=== PATIENT | female | born 1965 | race Caucasian/White ===

== ENCOUNTER → 2017-11-09 | Day surgery (SDC) | payer BC ==
[2017-11-08 08:23] VITALS: BMI 33.2
[~2017-11-09] MED LIST: LACTATED RINGERS 1,000 ML IV SCH; LIDOCAINE 1% 20 ML VIAL (10MG/ML) FOR IV START INTRADERMA PRN; PROPOFOL 10 MG/ML 20 ML VIAL IV ONE
[2017-11-09 12:15] VITALS: TEMP 96.8
--- NOTE | 2017-11-09 13:17 | P.PCN ---
Date of Procedure: 11/09/17 Procedure(s) Performed: BRIEF HISTORY: Patient is a 52-year-old, pleasant, white female, scheduled for an upper endoscopy as a part of evaluation of intermittent dysphagia to solids for the last 6 months duration. She has symptoms with solids about once or twice a week. She denies any heartburn.. PROCEDURE PERFORMED: Esophagogastroduodenoscopy with dilation. PREOPERATIVE DIAGNOSIS: Intermittent dysphagia to solids. IV sedation per anesthesia. PROCEDURE: After informed consent was obtained, the patient was brought into the endoscopy unit. IV sedation was administered by Anesthesia under continuous monitoring. Initially the Olympus GIF-140 video endoscope was inserted into the mouth. Esophagus intubated without any difficulty. It was gradually advanced into the stomach and duodenum and carefully examined. The bulb and the second part of the duodenum appeared normal. The scope at this time was withdrawn to the stomach, adequately insufflated with air, and upon careful examination, mucosa of the antrum, body, cardia and the fundus appeared normal. The scope was then withdrawn into the esophagus. Small hiatal hernia noted. The GE junction was located at 32 cm from the incisors. There was a distal esophageal stricture identified and this was dilated using the 12-15 mm TTS balloon for total of 90 seconds. There were 2 superficial erosions noted at the GE junction consistent with LA grade B reflux esophagitis. Rest of esophagus appeared normal and the patient tolerated the procedure well. IMPRESSION: 1. Distal esophageal stricture status post balloon dilation using 12-15 mm TTS balloon as described above 2.[ Small hiatal hernia 3. LA grade B reflux esophagitis. RECOMMENDATIONS: The findings of this examination were discussed with the patient as well as her family. She was advised to be a clear liquid diet for lunch today. She'll be started on Prilosec 20 mg daily. She was advised to follow up in office in 3 months.
[2017-11-09 13:21] VITALS: RESP 16
[2017-11-09 13:39] VITALS: BP 129/69; PULSE 74
== END ==
LOC: ORWHC2ENDO 11:37
PROVIDERS: ATTEND Internal Medicine Gastroenterology
DX: K22.2 Esophageal obstruction (principal); K44.9 Diaphragmatic hernia without obstruction or gangrene; K21.0 Gastro-esophageal reflux disease with esophagitis; Z79.1 Long term (current) use of non-steroidal anti-inflammatories (NSAID)
CPT/HCPCS: 43249; J2704; C1726

== ENCOUNTER → 2017-11-09 | Outpatient (CLI) | payer BC ==
--- NOTE | 2017-11-09 13:11 | WWHP ---
[facility] - HISTORY AND PHYSICAL DATE OF SERVICE: 11/09/2017 CHIEF COMPLAINT: The patient is here for her routine gynecologic exam and mammogram. HPI: This is a 52-year-old G2, P2, with an LMP of 2003. The patient states it has been more than 5 years since her last pelvic exam. She is without gynecologic complaints and denies any postmenopausal bleeding. 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 She denies any other medical problems. She does not have a history of hypertension. MEDICATIONS: 1. Vitamin D3, 2000 units daily. 2. Fish oil supplement 1200 mg daily. 3. Women's multivitamin 1 daily. 4. Naproxen sodium 500 mg p.r.n. ALLERGIES: No known drug allergies. PAST SURGICAL HISTORY: Cleft palate repair as a child, jaw surgery in the past, laparoscopic cholecystectomy 2015. PAST OB HISTORY: Two vaginal deliveries. PAST THROAT CUTTER HISTORY: She has been menopausal since 2013 and has no history of STDs. SOCIAL HISTORY: She quit smoking in her 30s. She denies alcohol and drug use. She is and is a homemaker. FAMILY HISTORY: Father had throat cancer. She denies family history of cancer of the breast, uterus, ovaries or colon. REVIEW OF SYSTEMS: Weight has been stable. She denies respiratory or cardiac problems. GI: She has had some difficulty swallowing and is seeing Dr. Mariscal and she is scheduled for an upper GI. PHYSICAL EXAM: Blood pressure 178/78, height 5 feet 1 inch, weight 177 pounds, BMI 33. temperature 96.9, pulse 71. This is a well-developed, well-nourished, white female, who is alert and oriented x3, in no acute distress. HEENT is within normal limits. NECK: Supple without mass or thyromegaly. CHEST AND LUNGS: Clear to auscultation. HEART: Regular rate and rhythm. Breasts are without mass or discharge. Axillary exam is negative for adenopathy. BACK: Negative for CVA tenderness. ABDOMEN: Soft, nontender, without palpable masses. PELVIC EXAM: External genitalia reveals mild atrophy without lesions. Cervix and vagina reveal mild atrophy. The cervix is slightly irregular in shape with an elongated anterior lip, but this appears benign. There are no cervical lesions. There is no unusual discharge. There is no evidence of prolapse. Bimanual exam, the uterus is mid position, nongravid size and nontender. There is an irregular firmness in the left adnexal region which seems to be adjacent to the uterus. There are no right adnexal masses or tenderness. There is no left adnexal tenderness. Rectovaginal exam was refused by the patient. EXTREMITIES: Nontender. IMPRESSION: A 52-year-old menopausal female with left adnexal pelvic mass. Differential diagnosis will include uterine fibroid, left ovarian mass, which would include benign or malignant change or benign uterine enlargement. PLAN: 1. Pap smear was performed. 2. Self breast examination was discussed. 3. Screening mammogram will be done today. 4. Bone density screening will be done today as was recommended by her primary care physician according to the patient. 5. Her elevated blood pressure was discussed. She will follow up with Dr. Reese regarding blood pressure issues. 6. The patient will be scheduled for a pelvic ultrasound to further evaluate the possible adnexal mass. 7. I have recommended screening colonoscopy. I have recommended that she talk to Dr. Mariscal who will be doing her upper GI about this. 8. She will return in 1 year and p.r.n. MMODL / IJN: [id number] /
--- NOTE | 2017-11-10 11:44 | MM ---
Reason for exam: screening (asymptomatic). Last mammogram was performed 2 years and 2 months ago. History: Patient is postmenopausal. Physical Findings: A clinical breast exam by your physician is recommended on an annual basis and results should be correlated with mammographic findings. MG Screening Mammo w CAD Bilateral CC and MLO view(s) were taken. Prior study comparison: September 02, 2015, mammogram, performed at [facility]. September 25, 2013, mammogram, performed at [facility]. The breast tissue is heterogeneously dense. This may lower the sensitivity of mammography. Focal asymmetry upper outer left breast 6.6cm from nipple. This finding is changed when compared with previous exams. ASSESSMENT: Incomplete: need additional imaging evaluation, BI-RAD 0 RECOMMENDATION: Special view mammogram of the left breast. If lesion persists on supplemental views, image directed ultrasound is recommended. [facility] will attempt to contact patient to return for supplemental views and ultrasound if indicated.
--- NOTE | 2017-11-10 22:13 | BD ---
EXAMINATION TYPE: MG DEXA axial skeleton. DATE OF EXAM: 11/09/2017 COMPARISON: NONE CLINICAL HISTORY: Height: 60.5 IN Weight: 167 LBS FRAX RISK QUESTIONS: Alcohol (3 or more units per day): NO Family History (Parent hip fracture): NO Glucocorticoids (More than 3mos): NO (Ex: prednisone, prednisolone, methylprednisolone, dexamethasone, and hydrocortisone). History of Fracture in Adulthood: YES LEFT FOREARM AGE 48 Secondary Osteoporosis: 1. Type 1 Diabetes: NO 2. Hyperthyroidism: NO 3. Menopause before 45: NO 4. Malnutrition: NO 5. Chronic liver disease: NO Rheumatoid Arthritis: NO Current Tobacco Use: NO RISK FACTORS HISTORY OF: History of Wrist Fracture: YES LEFT WRIST AGE 48 When: AGE 48 Active: YES Diet low in dairy products/other sources of calcium: YES Postmenopausal woman: AGE 48 MEDICATIONS: Additional Medications: VIT D, FISH OIL, EXAM MEASUREMENTS: Bone mineral densitometry was performed using the [employer] System. Bone mineral density as measured about the Lumbar spine is: ----- L1-L4(G/cm2): 1.391 T Score Values are as follows: ----- L2: 1.6 ----- L3: 1.6 ----- L4: 2.5 ----- L1-L4: 1.8 Bone mineral density BASELINE Bone mineral density about the R hip (g/cm2): 1.252 Bone mineral density about the L hip (g/cm2): 1.231 T Score values are as follows: -----R Neck: 1.5 -----L Neck: 1.4 -----R Total: 2.3 -----L Total: 2.6 Bone mineral density BASELINE IMPRESSION: Normal (Values between +1 and -1 indicate normal bone mass). Consider repeating this study in 5 year s or sooner if there is some new clinical indication. NOTE: T-SCORE=SD OF THE YOUNG ADULT MEAN.
== END | disposition home or self-care (01) ==
LOC: WWCWWP 09:13
PROVIDERS: ATTEND Obstetrics & Gynecology
DX: Z12.31 Encounter for screening mammogram for malignant neoplasm of breast (principal); Z78.0 Asymptomatic menopausal state
CPT/HCPCS: 77067; 77080

== ENCOUNTER → 2017-11-22 | Outpatient (CLI) | payer BC ==
--- NOTE | 2017-11-23 07:25 | MM ---
Reason for exam: additional evaluation requested from abnormal screening. Last mammogram was performed less than 1 month ago. History: Patient is postmenopausal. Physical Findings: Dr. Larsen did not find any significant physical abnormalities on exam. MG Work Up Mamm w CAD LT Spot compression MLO, spot compression CC, and ML view(s) were taken of the left breast. Prior study comparison: November 09, 2017, bilateral MG screening mammo w CAD. September 02, 2015, mammogram, performed at [facility]. There is no dominant lesion. There is no discrete abnormality. These results were verbally communicated with the patient and result sheet given to the patient on 11/22/17. ASSESSMENT: Negative, BI-RAD 1 RECOMMENDATION: Return to routine screening mammogram schedule for both breasts.
--- NOTE | 2017-11-23 08:51 | US ---
EXAMINATION TYPE: US transvaginal DATE OF EXAM: 11/22/2017 COMPARISON: CT CLINICAL HISTORY: R19.00 Pelvic Mass. TECHNIQUE: Transvaginal (TV) Date of LMP: 6 years prior EXAM MEASUREMENTS: Uterus: 6.5 x 4.1 x 4.1cm Endometrial Stripe: 1.2 cm Post menopausal patient not on any hormone replacement therapy. Right Ovary: not visualized due to overlying bowel/atrophy Left Ovary: not visualized due to overlying bowel/atrophy 1. Uterus: dives at 90 degree angle difficult to visualize 2. Endometrium: thickened for post menopausal patient 3. Right Ovary: Obscured by overlying bowel gas 4. Left Ovary: Obscured by overlying bowel gas 5. Bilateral Adnexa: wnl 6. Posterior cul-de-sac: wnl IMPRESSION: 1. The uterus is extremely difficult to visualize due to angulation, however the endometrium appears diffusely thickened and abnormal for a postmenopausal female. Direct visualization and tissue samplin g or sonohysterogram could be performed for further evaluation. 2. Nonvisualization of the bilateral ovaries due to overlying bowel gas.
== END | disposition home or self-care (01) ==
LOC: RADMAMWWP 15:37
PROVIDERS: ATTEND Obstetrics & Gynecology
DX: R92.8 Other abnormal and inconclusive findings on diagnostic imaging of breast (principal); R93.8 Abnormal findings on diagnostic imaging of other specified body structures; Z78.0 Asymptomatic menopausal state
CPT/HCPCS: 76830; 77065

== ENCOUNTER → 2019-02-07 | Outpatient (CLI) | payer BC ==
--- NOTE | 2019-02-09 13:30 | MM ---
Reason for exam: screening (asymptomatic). Last mammogram was performed 1 year and 3 months ago. History: Patient is postmenopausal. Physical Findings: A clinical breast exam by your physician is recommended on an annual basis and results should be correlated with mammographic findings. MG Screening Mammo w CAD Bilateral CC and MLO view(s) were taken. Prior study comparison: November 22, 2017, left breast MG work up mamm w CAD LT. November 09, 2017, bilateral MG screening mammo w CAD. The breast tissue is heterogeneously dense. This may lower the sensitivity of mammography. There is no discrete abnormality. No significant changes when compared with prior studies. ASSESSMENT: Negative, BI-RAD 1 RECOMMENDATION: Routine screening mammogram of both breasts in 1 year.
== END | disposition home or self-care (01) ==
LOC: RADMAMWWP 14:47
PROVIDERS: ATTEND Family Medicine
DX: Z12.31 Encounter for screening mammogram for malignant neoplasm of breast (principal)
CPT/HCPCS: 77067

== ENCOUNTER → 2020-01-04 | Day surgery (SDC) | payer BC ==
[2020-01-02 14:59] VITALS: BMI 31.2
[~2020-01-04] MED LIST changes: +LIDOCAINE 1% (10MG/ML) FOR IV START INTRADERMA PRN; -LIDOCAINE 1% 20 ML VIAL (10MG/ML) FOR IV START INTRADERMA PRN
[2020-01-04 07:19] VITALS: TEMP 97
[2020-01-04 08:07] VITALS: RESP 16
--- NOTE | 2020-01-04 08:07 | P.PCN ---
Date of Procedure: 01/04/20 Procedure(s) Performed: BRIEF HISTORY: Patient is a 54-year-old pleasant at female scheduled for an elective colonoscopy as a part of evaluation of positive cologuard. PROCEDURE PERFORMED: Colonoscopy with snare polypectomy. PREOPERATIVE DIAGNOSIS: Positive cologuard. IV sedation per Anesthesia. PROCEDURE: After informed consent was obtained, the patient, was brought into the endoscopy unit. IV sedation was administered by Anesthesia under continuous monitoring. Digital rectal examination was normal. Initially the Olympus CF-160 flexible video colonoscope was then inserted in the rectum, gradually advanced into the cecum without any difficulty. Careful examination was performed as the scope was gradually being withdrawn. Ileocecal valve and the appendiceal orifice were visualized and appeared normal. Prep was excellent. In the cecum there was a 2 cm broad-based polyp removed by snare polypectomy Mucosa of the cecum, ascending colon, transverse colon, descending colon, appeared normal. The sigmoid colon there was a 5 mm polyp that was removed by snare polypectomy. In the rectosigmoid colon there was a 7 mm polyp removed by snare polypectomy in the distal rectum there was a 5 mm polyp polypectomy. Rest of the sigmoid colon, and rectum appeared normal. Retroflexion was performed in the rectum and no lesions were seen. The patient tolerated the procedure well. IMPRESSION: 2 cm broad-based cecal polyp status post snare polypectomy 5 mm; sigmoid polyp status post polypectomy 7 mm rectosigmoid polyp status post snare polypectomy 5 mm distal rectal polyp status post polypectomy . RECOMMENDATIONS: Findings of this examination were discussed with the patient as well as her family. She was advised to follow with the biopsy results. If the biopsy shows an adenoma she can have a repeat colonoscopy in 3 years.
[2020-01-04 08:24] VITALS: BP 124/74; PULSE 82
--- NOTE | 2020-01-10 09:42 | CDI ---
. Outpatient Documentation Clarification Form Date: 01/10/2020 CDS/Heating And Ventilation Engineer Name: Phone: If you have question, contact Tammie Barrientos, Solid Waste Disposal Manager at [phone] M-F 8:30 am to 6pm. Patient Name: Chloe Wheat Admit Date: 01/04/2020 Discharge Date: 01/04/2020 ATTENTION: The Clinical Documentation Specialists (CDI) and [facility] Coding Staff appreciate your assistance in clarifying documentation. Please respond to the clarification below the line at the bottom and electronically sign. The CDI & [facility] Coding staff will review the response and follow-up if needed. Please note: Queries are made part of the Legal Health Record. If you have any questions, please contact the author of this message via ITS or call the Solid Waste Disposal Manager. Dear Julia Carrington, As per your Operative note documentation Colonoscopy snare polypectomy was performed. Please clarify about the technique used for rectal polypectomy, since the operative report simply says rectal polyp polypectomy instead of brief explanation about the technique involved. 1. Snare Polypectomy 2. Cold Biopsy Polypectomy Thank you for your kind consideration Rectal polyp was removed bny snare polypectomy Dr.k Loida LUCERO
== END ==
LOC: ORWHC2ENDO 06:34
PROVIDERS: ATTEND Internal Medicine Gastroenterology
DX: D12.0 Benign neoplasm of cecum (principal); K63.5 Polyp of colon; K62.1 Rectal polyp; I10 Essential (primary) hypertension; E78.5 Hyperlipidemia, unspecified; Z79.899 Other long term (current) drug therapy; Z90.49 Acquired absence of other specified parts of digestive tract
CPT/HCPCS: 45385; 88305; J2704

== ENCOUNTER 2022-03-05 08:27 | Observation (INO) | payer BC ==
[2022-03-05] MEDS ORDERED: SODIUM CHLORIDE 0.9% 500 ML 500 ML IV ONE (09:24)
[2022-03-05 09:47] LABS: Basophils % (A) 1 %; Eosinophils # (A) 0.2 k/uL (0-0.7); Eosinophils % (A) 3 %; HCT 39.5 % (34.0-46.0); HGB 13.1 gm/dL (11.4-16.0); Lymphocytes # (A) 1.3 k/uL (1.0-4.8); Lymphocytes % (A) 24 %; MCHC 33.1 g/dL (31.0-37.0); MCV 90.8 fL (80.0-100.0); Mean Platelet Volume 7.8; Monocytes # (A) 0.3 k/uL (0-1.0); Monocytes % (A) 5 %; Neutrophils # (A) 3.6 k/uL (1.3-7.7); Neutrophils % (A) 65 %; Platelet Count 282 k/uL (150-450); RBC 4.35 m/uL (3.80-5.40); RDW 13.2 % (11.5-15.5); WBC 5.5 k/uL (3.8-10.6)
[2022-03-05 09:56] LABS: INR 0.9 (<1.2); Partial Thromboplastin Time 23.8 sec (22.0-30.0)
[2022-03-05 10:02] LABS: ALT 16 U/L (4-34); AST 22 U/L (14-36); African American GFR (CKD) >90 (>60 ml/min/1.73 sqM); Albumin 4.3 g/dL (3.5-5.0); Alkaline Phosphatase 62 U/L (38-126); Anion Gap 7 mmol/L; Blood Urea Nitrogen 19 mg/dL (7-17); Calcium 9.2 mg/dL (8.4-10.2); Carbon Dioxide 25 mmol/L (22-30); Chloride 111 mmol/L (98-107); Glucose 113 mg/dL (74-99); Non-African American GFR(CKD) >90 (>60 ml/min/1.73 sqM); Potassium 4.2 mmol/L (3.5-5.1); Sodium 143 mmol/L (137-145); Total Bilirubin 0.7 mg/dL (0.2-1.3)
--- NOTE | 2022-03-05 10:34 | US ---
EXAMINATION TYPE: US pelvis complete transvag DATE OF EXAM: 03/05/2022 COMPARISON: NONE CLINICAL HISTORY: postmenopausal hemorrhage. heavy vaginal bleeding with clots for 1 day. history of spotting. tubal ligation TECHNIQUE: Transvaginal (TV) and Transabdominal (TA) . Transabdominal sonographic images of the pel vis were acquired. Transvaginal sonographic images were medically necessary to better assess the fol lowing anatomy: uterus Date of LMP: unknown EXAM MEASUREMENTS: Uterus: 8.8 x 4.0 x 4.5 cm Endometrial Stripe: unable to clearly visualize Right Ovary: unable to visualize Left Ovary: unable to visualize 1. Uterus: unable to penetrate. ??possible mass-like area = 4.4 x 4.0 x 3.4cm 2. Endometrium: unable to clearly visualize 3. Right Ovary: Obscured by overlying bowel gas 4. Left Ovary: Obscured by overlying bowel gas 5. Bilateral Adnexa: appears wnl 6. Posterior cul-de-sac: wnl IMPRESSION: 1. Limited exam as discussed above. Question a mass in the uterus measuring 4.4 cm. Endometrium is no ndiagnostic. Recommend CT scan. 2. Ovaries are not visualized due to bowel gas.
--- NOTE | 2022-03-05 11:27 | CT ---
EXAMINATION TYPE: CT abdomen pelvis w con DATE OF EXAM: 03/05/2022 COMPARISON: Same day sonography HISTORY: vaginal bleeding CT DLP: 922.8 mGycm CONTRAST: CT scan of the abdomen and pelvis is performed without Oral Contrast and with IV Contrast, patient in jected with 100 mL of Isovue 300. FINDINGS: LUNG BASES-: No visible nodule. No infiltrate. LIVER/GB: The gallbladder is surgically absent. Mild hepatic steatosis noted. No space occupying h epatic lesion. Biliary tree is of normal caliber. PANCREAS: No inflammation. No distinct mass. SPLEEN: No splenic enlargement. No lesion seen. ADRENALS: No nodule. No thickening. 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 No hydronephrosis. No distinct solid r enal mass. Lower component demonstrates a 1.7 cm simple cyst. Lower component also demonstrates 3 mm nonobstructing calculus. Urinary bladder grossly unremarkable. BOWEL: Normal appendix. Normal bowel caliber. No inflammation. GENITAL ORGANS: There is endometrial or subendometrial uterine mass measuring 3.8 x 4 cm. Hysterosco py is recommended to exclude malignancy. No evidence for adnexal mass or free fluid. LYMPH NODES: No greater than 1cm abdominal or pelvic lymph nodes are appreciated. AORTA: No significant abnormality. OSSEOUS STRUCTURES: No significant abnormality is seen. OTHER: No significant additional abnormality is seen. IMPRESSION: 1. Endometrial or subendometrial mass. Direct visualization is recommended to exclude malignancy. 2. 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
--- NOTE | 2022-03-05 11:51 | ED ---
Female Urogenital HPI - General Chief complaint: Vaginal Bleeding Stated complaint: Vaginal bleeding Time Seen by Provider: 03/05/22 08:36 Source: patient Mode of arrival: ambulatory Limitations: no limitations - History of Present Illness Initial comments: 56-year-old female presents to the emergency department with vaginal bleeding. States that she woke up at 7 AM this morning and felt a gush of blood. Noted that she was having vaginal bleeding which is abnormal for her. She stopped having menstrual cycles approximately 8 years ago. She does admit to me that over the past few months she has had some intermittent spotting which she thought was changing of her hormones. She does admit to mild abdominal discomfort. No dysuria, hematuria or different be voiding. No changes in her bowel habits to include diarrhea, consultation, melanic stools or hematochezia. She has had a history of tubal ligation. No history of cervical or uterine procedures. No history of cancer. States that she is saturating approximately one pad per hour. No other alleviating, precipitating modifying factors - Related Data Home Medications Medication Instructions Recorded Confirmed Multivitamins, Thera [Multivitamin 1 tab PO DAILY 11/08/17 03/05/22 (formulary)] lisinopriL [Zestril] 10 mg PO DAILY 01/02/20 03/05/22 Escitalopram [Lexapro] 10 mg PO HS 03/05/22 03/05/22 Pravastatin Sodium [Pravachol] 20 mg PO DAILY 03/05/22 03/05/22 Ubidecarenone [Co Q-10] 100 mg PO DAILY 03/05/22 03/05/22 Allergies Allergy/AdvReac Type Severity Reaction Status Date / Time No Known Allergies Allergy Verified 03/05/22 13:25 Review of Systems ROS Statement: Those systems with pertinent positive or pertinent negative responses have been documented in the HPI. ROS Other: All systems not noted in ROS Statement are negative. Past Medical History Past Medical History: Hyperlipidemia, Hypertension Additional Past Medical History / Comment(s): + COLOGARD History of Any Multi-Drug Resistant Organisms: None Reported Past Surgical History: Cholecystectomy, Ear Surgery, Hernia Repair Additional Past Surgical History / Comment(s): surgery for cleft palate and lip, jaw surgery, Past Anesthesia/Blood Transfusion Reactions: Postoperative Nausea & Vomiting (PONV) Past Psychological History: No Psychological Hx Reported Smoking Status: Never smoker Past Alcohol Use History: None Reported Past Drug Use History: None Reported - Past Family History Father Family Medical History: Cancer General Exam Limitations: no limitations General appearance: alert, in no apparent distress Head exam: Present: atraumatic, normocephalic, normal inspection Eye exam: Present: normal appearance, PERRL, EOMI. Absent: scleral icterus, conjunctival injection, periorbital swelling ENT exam: Present: normal exam, mucous membranes moist Neck exam: Present: normal inspection. Absent: tenderness, meningismus, lymphadenopathy Respiratory exam: Present: normal lung sounds bilaterally. Absent: respiratory distress, wheezes, rales, rhonchi, stridor Cardiovascular Exam: Present: regular rate, normal rhythm, normal heart sounds. Absent: systolic murmur, diastolic murmur, rubs, gallop, clicks GI/Abdominal exam: Present: soft, normal bowel sounds. Absent: distended, tenderness, guarding, rebound, rigid External exam: Present: normal external exam. Absent: lesions, lacerations Speculum exam: Present: vaginal bleeding. Absent: cervical discharge, tissue Extremities exam: Present: normal inspection, full ROM, normal capillary refill. Absent: tenderness, pedal edema, joint swelling, calf tenderness Back exam: Present: normal inspection Neurological exam: Present: alert, oriented X3, CN II-XII intact Psychiatric exam: Present: normal affect, normal mood Skin exam: Present: warm, dry, intact, normal color. Absent: rash Course Vital Signs 03/05/22 03/05/22 08:29 11:00 Temperature 97.9 F Pulse Rate 84 68 Respiratory 18 16 Rate Blood Pressure 140/79 136/71 O2 Sat by Pulse 98 98 Oximetry - Reevaluation(s) Reevaluation #1: Spoke with Dr. Esposito - boarding patient for d+c 03/05/22 11:51 Medical Decision Making - Medical Decision Making Upon arrival patient is placed into room 10. A thorough history of physical exam is performed. Pelvic exam is performed which does demonstrate significant clotting and bleeding. Patient is hemodynamic is stable. IV is established and laboratory studies were conducted. Hemoglobin 13.1 which is consistent from patient's previous. Ultrasound is attempted however incomplete. I did follow this up with a CT the abdomen pelvis which demonstrates a 4 cm endometrial mass. I called and spoke with Dr. Esposito. Patient will require D&C at this time and the patient is boarded - Lab Data Result diagrams: 03/05/22 17:21 03/05/22 09:30 Lab Results 03/05/22 03/05/22 03/05/22 Range/Units 09:30 09:30 09:30 WBC 5.5 (3.8-10.6) k/uL RBC 4.35 (3.80-5.40) m/uL Hgb 13.1 (11.4-16.0) gm/dL Hct 39.5 (34.0-46.0) % MCV 90.8 (80.0-100.0) fL MCH 30.0 (25.0-35.0) pg MCHC 33.1 (31.0-37.0) g/dL RDW 13.2 (11.5-15.5) % Plt Count 282 (150-450) k/uL MPV 7.8 Neutrophils % 65 % Lymphocytes % 24 % Monocytes % 5 % Eosinophils % 3 % Basophils % 1 % Neutrophils # 3.6 (1.3-7.7) k/uL Lymphocytes # 1.3 (1.0-4.8) k/uL Monocytes # 0.3 (0-1.0) k/uL Eosinophils # 0.2 (0-0.7) k/uL Basophils # 0.0 (0-0.2) k/uL PT 10.0 (9.0-12.0) sec INR 0.9 (<1.2) APTT 23.8 (22.0-30.0) sec Sodium 143 (137-145) mmol/L Potassium 4.2 (3.5-5.1) mmol/L Chloride 111 H (98-107) mmol/L Carbon Dioxide 25 (22-30) mmol/L Anion Gap 7 mmol/L BUN 19 H (7-17) mg/dL Creatinine 0.70 (0.52-1.04) mg/dL Est GFR (CKD-EPI)AfAm >90 (>60 ml/min/1.73 sqM) Est GFR (CKD-EPI)NonAf >90 (>60 ml/min/1.73 sqM) Glucose 113 H (74-99) mg/dL Calcium 9.2 (8.4-10.2) mg/dL Total Bilirubin 0.7 (0.2-1.3) mg/dL AST 22 (14-36) U/L ALT 16 (4-34) U/L Alkaline Phosphatase 62 (38-126) U/L Total Protein 7.0 (6.3-8.2) g/dL Albumin 4.3 (3.5-5.0) g/dL Blood Type Blood Type Confirm Blood Type Recheck Bld Type Recheck Status Antibody Screen Spec Expiration Date 03/05/22 03/05/22 Range/Units 09:40 09:41 WBC (3.8-10.6) k/uL RBC (3.80-5.40) m/uL Hgb (11.4-16.0) gm/dL Hct (34.0-46.0) % MCV (80.0-100.0) fL MCH (25.0-35.0) pg MCHC (31.0-37.0) g/dL RDW (11.5-15.5) % Plt Count (150-450) k/uL MPV Neutrophils % % Lymphocytes % % Monocytes % % Eosinophils % % Basophils % % Neutrophils # (1.3-7.7) k/uL Lymphocytes # (1.0-4.8) k/uL Monocytes # (0-1.0) k/uL Eosinophils # (0-0.7) k/uL Basophils # (0-0.2) k/uL PT (9.0-12.0) sec INR (<1.2) APTT (22.0-30.0) sec Sodium (137-145) mmol/L Potassium (3.5-5.1) mmol/L Chloride (98-107) mmol/L Carbon Dioxide (22-30) mmol/L Anion Gap mmol/L BUN (7-17) mg/dL Creatinine (0.52-1.04) mg/dL Est GFR (CKD-EPI)AfAm (>60 ml/min/1.73 sqM) Est GFR (CKD-EPI)NonAf (>60 ml/min/1.73 sqM) Glucose (74-99) mg/dL Calcium (8.4-10.2) mg/dL Total Bilirubin (0.2-1.3) mg/dL AST (14-36) U/L ALT (4-34) U/L Alkaline Phosphatase (38-126) U/L Total Protein (6.3-8.2) g/dL Albumin (3.5-5.0) g/dL Blood Type A Positive Blood Type Confirm A Positive Blood Type Recheck No Previous Record Bld Type Recheck Status CABO Indicated Antibody Screen NEGATIVE Spec Expiration Date 03/08/2022 - 2340 Critical Care Time Critical Care Time: Yes Critical Care Time: 32 minutes for evaluation and preparation for OR Disposition Clinical Impression: Postmenopausal bleeding, Endometrial mass Disposition: ADMITTED IP TO THIS [facility] Condition: Good Is patient prescribed a controlled substance at d/c from ED?: No Decision to Admit Reason: Admit from EC Decision Date: 03/05/22 Decision Time: 11:55
[2022-03-05] MEDS ORDERED: NALOXONE 0.4 MG/ML 1 ML VIAL IV PRN (11:55)
[2022-03-05] MEDS ORDERED: LACTATED RINGERS 1,000 ML IV ONE (13:27)
[2022-03-05] MEDS ORDERED: ONDANSETRON 4 MG/2 ML VIAL ONE (13:37)
[2022-03-05] MEDS ORDERED: LIDOCAINE 2% INJ 20 MG/ML (2 ML VIAL) ONE (13:41)
[2022-03-05] MEDS ORDERED: PROPOFOL 10 MG/ML 20 ML VIAL IV ONE (13:41)
[2022-03-05] MEDS ORDERED: MIDAZOLAM 2 MG/2 ML VIAL ONE (13:41)
[2022-03-05] MEDS ORDERED: fentaNYL (PF) 50 MCG/ML 2 ML AMP ONE (13:41)
[2022-03-05] MEDS ORDERED: DEXAMETHASONE SOD PHOSPHATE 4 MG/ML 1 ML VIAL IV ONE (13:42)
[2022-03-05] MEDS ORDERED: ONDANSETRON 4 MG/2 ML VIAL IVP ONE (13:42)
--- NOTE | 2022-03-05 14:33 | P.HPOB ---
History of Present Illness H&P Date: 03/05/22 Chief Complaint: Heavy vaginal bleeding This is a 56-year-old non patient that presented to the ER with complaints of heavy vaginal bleeding. Patient states bleeding began around 7 AM and has been heavy with the passage of large clots since that time. I was c alled by the ER physician Dr. Ansari who stated she was able to do an exam but multiple clots were noted in the vaginal vault. On ultrasound and CT scan a endometrial mass was appreciated, approximately 4cm. Patient is a poor historian but she did say she went a few years without menstrual cycles and then approximately 4 years ago she started having episodes of spotting. The spotting increased to the heavy flow noted today. Review of Systems Constitutional: Denies chills, Denies fatigue, Denies fever Ears, nose, mouth and throat: Denies headache Cardiovascular: Denies leg edema Respiratory: Denies dyspnea Gastrointestinal: Denies nausea, Denies vomiting Genitourinary: Reports as per HPI, Denies Menstruation: Reports as per HPI, Reports postmenopausal Past Medical History Past Medical History: Hyperlipidemia, Hypertension Additional Past Medical History / Comment(s): + COLOGARD History of Any Multi-Drug Resistant Organisms: None Reported Past Surgical History: Cholecystectomy, Ear Surgery, Hernia Repair Additional Past Surgical History / Comment(s): surgery for cleft palate and lip, jaw surgery, Past Anesthesia/Blood Transfusion Reactions: Postoperative Nausea & Vomiting (PONV) Past Psychological History: No Psychological Hx Reported Smoking Status: Never smoker Past Alcohol Use History: None Reported Past Drug Use History: None Reported - Past Family History Father Family Medical History: Cancer Medications and Allergies Home Medications Medication Instructions Recorded Confirmed Type Multivitamins, Thera [Multivitamin 1 tab PO DAILY 11/08/17 03/05/22 History (formulary)] lisinopriL [Zestril] 10 mg PO DAILY 01/02/20 03/05/22 History Escitalopram [Lexapro] 10 mg PO HS 03/05/22 03/05/22 History Pravastatin Sodium [Pravachol] 20 mg PO DAILY 03/05/22 03/05/22 History Ubidecarenone [Co Q-10] 100 mg PO DAILY 03/05/22 03/05/22 History Allergies Allergy/AdvReac Type Severity Reaction Status Date / Time No Known Allergies Allergy Verified 03/05/22 13:25 Exam Osteopathic Statement: *. No significant issues noted on an osteopathic structural exam other than those noted in the History and Physical/Consult. Vital Signs Temp Pulse Resp BP Pulse Ox 03/05/22 13:23 98.0 F 72 20 135/77 98 03/05/22 11:00 68 16 136/71 98 03/05/22 08:29 97.9 F 84 18 140/79 98 Intake and Output 03/04/22 03/05/22 03/05/22 22:59 06:59 14:59 Other: Weight 65.771 kg Targeted physical exam is performed in this date and hot knife cutter a well-nourished well-developed non female in no acute distress, breathing is appreciated to be to be nonlabored, heart has a noted regular rate and rhythm, abdomen is soft and nontender, genitourinary exam is deferred as the ED stated multiple clots in the vaginal vault. Results Result Diagrams: 03/05/22 09:30 03/05/22 09:30 Abnormal Lab Results - Last 24 Hours (Table) 03/05/22 Range/Units 09:30 Chloride 111 H (98-107) mmol/L BUN 19 H (7-17) mg/dL Glucose 113 H (74-99) mg/dL Assessment and Plan (1) Endometrial mass Current Visit: Yes Status: Acute Code(s): N94.89 - OTH COND ASSOC W FEMALE GENITAL ORGANS AND MENSTRUAL CYCLE SNOMED Code(s): 24037004678638 (2) Postmenopausal bleeding Current Visit: Yes Status: Acute Code(s): N95.0 - POSTMENOPAUSAL BLEEDING SNOMED Code(s): 61439285 Plan: 56-year-old non female presents with heavy vaginal bleeding, given the amount of bleeding and endometrial mass plan for hysteroscopy D dilation and curettage. Patient is counseled on procedure. All questions are answered with patient and patient's sister. Informed consent is obtained and patient was taken back to the operating suite. Of note ultrasound and computed tomography scan are reviewed recommendation for hysteroscopic evaluation to rule out malignancy of this 4 cm mass in the endome trium. Uterus is noted to be nonenlarged at 8 cm, ovaries were not visualized and no masses were appreciated in the adnexa
[2022-03-05] MEDS ORDERED: ACETAMINOPHEN IV (For NPO) 1,000 MG in EMPTY BAG 1 BAG IVPB ONE (14:37)
[2022-03-05] MEDS ORDERED: IBUPROFEN 600 MG TAB PO PRN (14:37)
[2022-03-05] MEDS ORDERED: SIMETHICONE 80 MG CHEWABLE PO PRN (14:37)
--- NOTE | 2022-03-05 14:37 | P.OP ---
Date of Procedure: 03/05/22 Preoperative Diagnosis: Heavy vaginal bleeding, endometrial mass Postoperative Diagnosis: Same Procedure(s) Performed: Hysteroscopy, dilation and curettage Anesthesia: MIKE Surgeon: Wanda Esposito Estimated Blood Loss (ml): 15 IV fluids (ml): 600 Urine output (ml): 100 Pathology: other (Endometrial curettings) Condition: stable Disposition: PACU Indications for Procedure: 48-year-old non female with complaints of heavy vaginal bleeding, patient has been bleeding since 7 AM with the passage of large clots. Speculum exam was done in the ER by the ER physician, minimal visualization as she noted the passage of large clots and significant blood in the vaginal vault. Cervix was difficult to visualize second to the amount of bleeding she was having Operative Findings: Normal uterine size, minimal hysteroscopic evaluation secondary to bleeding. On uterine sound uterus is noted to be 8 cm in length, large amount of specimen was obtained. Bleeding was noted at the end of the procedure from the cervix, scant flow Description of Procedure: Patient was taken back to the operative suite where general anesthesia was obtained without difficulty by the anesthesia department. She was prepped and draped in normal sterile fashion in the dorsal lithotomy position. A red rubber catheter was used to drain the bladder clear yellow urine. Weighted speculumin the posterior vaginal vault and the anterior lip of the cervix was visualized grasped with a single-tooth tenaculum. Endocervical canal was then serially dilated. Hysteroscope was placed through the cervix and toward the endometrial cavity. A proliferative endometrium was appreciated but minimal visualization secondary to bleeding. Hysteroscope was removed. At this time a sharp curettage was performed. A large amount of tissue was removed from the endometrial cavity. At this time bleeding had slowed, the single tenaculum was taken off of the anterior lip of the cervix. Hemostasis was appreciated the tenaculum site. Bimanual exam revealed a posterior mass of the uterus, smooth in nature, no adnexal masses were appreciated. The uterus was noted to be mobile. All counts were noted to be correct 2 at the end of the procedure. Patient tolerated procedure well.
[2022-03-05] MEDS ORDERED: HYDROmorphone 0.5 MG/0.5 ML SYRINGE IVP ONE (14:43)
[2022-03-05] MEDS: SODIUM CHLORIDE 0.9% 1,000 ML IV SCH (15:47)
[2022-03-05 16:32] VITALS: RESP 16
[2022-03-05 17:36] LABS: Basophils % (A) 0 %; Eosinophils % (A) 1 %; HCT 37.1 % (34.0-46.0); HGB 12.3 gm/dL (11.4-16.0); Lymphocytes # (A) 0.9 k/uL (1.0-4.8); Lymphocytes % (A) 12 %; MCH 30.6 pg (25.0-35.0); MCHC 33.3 g/dL (31.0-37.0); MCV 92.1 fL (80.0-100.0); Monocytes # (A) 0.1 k/uL (0-1.0); Monocytes % (A) 1 %; Neutrophils # (A) 6.4 k/uL (1.3-7.7); Neutrophils % (A) 86 %; Platelet Count 251 k/uL (150-450); RBC 4.02 m/uL (3.80-5.40); RDW 13.3 % (11.5-15.5); WBC 7.4 k/uL (3.8-10.6)
[2022-03-06] MEDS: SODIUM CHLORIDE 0.9% 1,000 ML IV SCH (04:56)
[2022-03-06 07:40] VITALS: BP 144/76; PULSE 70; TEMP 98.3
--- NOTE | 2022-03-06 08:58 | P.DS ---
Providers Date of admission: 03/05/22 11:55 Expected date of discharge: 03/06/22 Attending physician: Wanda Esposito Primary care physician: Franck Reese - Discharge Diagnosis(es) (1) Endometrial mass Current Visit: Yes Status: Acute (2) Postmenopausal bleeding Current Visit: Yes Status: Acute (3) S/P dilatation and curettage Current Visit: Yes Status: Acute Hospital Course: 56-year-old non patient that presented to the emergency department yesterday with complaints of heavy vaginal bleeding that began around 7 AM. Patient states the bleeding was heavy with passage of large clots. Your physici an and reached out and sign out this patient to myself, decision was made for hysteroscopy, dilation and curettage. On ultrasound and computed tomography scan an endometrial mass was appreciated. For full details this patient please see the dictated history and physical. Patient was taken back to the operating room where hysteroscopy dilation and curettage was performed, a steady flow of bleeding was noted from the cervix, clots were evacuated from the vaginal vault. On hysteroscope minimal visualization was noted secondary to hemoglobin of bleeding. Uterus was noted to be not enlarged 8 cm, a sharp curettage was performed and a moderate amount of tissue was appreciated. Postoperatively this patient has had minimal bleeding. Minimal drop in hemoglobin was appreciated postoperatively. Patient states she feels well this morning she is ambulating and voiding without difficulty she is tolerating a regular diet without nausea or vomiting. She denies dizziness or lightheadedness. Her bleeding has been light to scant postoperatively. We'll plan discharge home. Patient Condition at Discharge: Good Plan - Discharge Summary New Discharge Prescriptions: No Action Multivitamins, Thera [Multivitamin (formulary)] 1 tab PO DAILY lisinopriL [Zestril] 10 mg PO DAILY Pravastatin Sodium [Pravachol] 20 mg PO DAILY Escitalopram [Lexapro] 10 mg PO HS Ubidecarenone [Co Q-10] 100 mg PO DAILY Discharge Medication List Multivitamins, Thera [Multivitamin (formulary)] 1 tab PO DAILY 11/08/17 [History] lisinopriL [Zestril] 10 mg PO DAILY 01/02/20 [History] Escitalopram [Lexapro] 10 mg PO HS 03/05/22 [History] Pravastatin Sodium [Pravachol] 20 mg PO DAILY 03/05/22 [History] Ubidecarenone [Co Q-10] 100 mg PO DAILY 03/05/22 [History] Follow up Appointment(s)/Referral(s): Franck Reese DO [Primary Care Provider] - 1-2 days Wanda Esposito DO [Doctor of Osteopathic Medicine] - 1 Week Discharge Disposition: HOME SELF-CARE
== END 2022-03-06 10:12 | disposition home or self-care (01) ==
LOC: EC 08:27 → 4FBP 11:55
PROVIDERS: ADMIT Obstetrics & Gynecology Obstetrics; ATTEND Obstetrics & Gynecology Obstetrics
DX: C54.1 Malignant neoplasm of endometrium (principal); I10 Essential (primary) hypertension; E78.5 Hyperlipidemia, unspecified; Z71.9 Counseling, unspecified; Z79.899 Other long term (current) drug therapy; Z98.51 Tubal ligation status; Z87.730 Personal history of (corrected) cleft lip and palate; Z90.49 Acquired absence of other specified parts of digestive tract; Z80.9 Family history of malignant neoplasm, unspecified
CPT/HCPCS: 99285; 36415; 86900; 86901; 88305; 80053; 85025; 85610; 85730; 86850; 76856; 76830; 74177; 58558; G0378 ×2; J2250; J1100; J2405; J3010; J0131; J2704; J1170; Q9967; J2001

== ENCOUNTER → 2022-11-02 | Outpatient (CLI) | payer BC ==
[2022-11-02 09:55] LABS: African American GFR (CKD) >90 (>60 ml/min/1.73 sqM); Blood Urea Nitrogen 17 mg/dL (7-17); Non-African American GFR(CKD) 90 (>60 ml/min/1.73 sqM)
--- NOTE | 2022-11-02 11:34 | CT ---
EXAMINATION TYPE: CT ChestAbdPelvis w con CT DLP: 1074.1 mGycm, Automated exposure control for dose reduction was used. DATE OF EXAM: 11/02/2022 11:22 AM COMPARISON: CT abdomen pelvis 03/05/2022. CLINICAL INDICATION:Female, 57 years old with history of C54.9 ENDOMETR CA; PHH, endometrial CA Technique: Multiple axial images of the chest, abdomen, and pelvis were obtained following the intrav enous administration of 70 mL Isovue-300. Oral contrast was administered. Two-dimensional coronal and sagittal reconstructions were obtained. Findings: CHEST: LUNGS/ PLEURA: No suspicious pulmonary nodules or masses. No pneumothorax, pleural effusion, or focal consolidation. AIRWAY: Patent and unremarkable.. HEART: Size within normal limits. No pericardial effusion. MEDIASTINUM: No pathologically enlarged lymph nodes. VASCULATURE: No aortic aneurysm. Mild atherosclerotic calcification aorta and its branches. MUSCULOSKELETAL: No acute osseous abnormalities. No aggressive osseous lesion. SOFT TISSUES/LYMPH NODES: Unremarkable. LOWER NECK: No significant findings. ABDOMEN: ABDOMEN LIVER: Unremarkable GALLBLADDER AND BILE DUCTS: Postcholecystectomy. No biliary ductal dilatation. PANCREAS: Unremarkable. SPLEEN: Unremarkable. ADRENAL GLANDS: Unremarkable. 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 No hydronephrosis. Stable 1.7 cm cyst invo lving the lower component. Subcentimeter hypodense focus within the upper component which is too smal l to characterize but likely represents a cyst. PELVIS BLADDER: Unremarkable REPRODUCTIVE: The uterus is surgically absent. No suspicious soft tissue at the vaginal cuff. No susp icious adnexal mass. ABDOMEN & PELVIS STOMACH AND BOWEL: Stomach and duodenum are unremarkable. No focal wall thickening. The appendix is w ithin normal limits. No evidence of bowel obstruction. Enteric contrast reaches the rectum. PERITONEUM: No evidence of pneumoperitoneum or free fluid. VASCULATURE: Mild atherosclerotic calcifications are present throughout the abdominal aorta and its b ranches. No abdominal aortic aneurysm. MUSCULOSKELETAL: No acute osseous abnormalities. No aggressive osseous lesion. LYMPH NODES: No gross evidence for lymphadenopathy. SOFT TISSUE/ABDOMINAL WALL: Tiny fat filled umbilical hernia. IMPRESSION: 1. Postsurgical changes from hysterectomy without evidence for local recurrence or distant metastasi s within the chest, abdomen, and pelvis. 2. 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
== END | disposition home or self-care (01) ==
LOC: RADCTMAIN 09:07
PROVIDERS: ATTEND Internal Medicine
DX: C54.9 Malignant neoplasm of corpus uteri, unspecified (principal); Z90.710 Acquired absence of both cervix and uterus; Z71.3 Dietary counseling and surveillance
CPT/HCPCS: 82565; 84520; 71260; 74177; Q9967 ×2

== ENCOUNTER → 2023-01-17 | Outpatient (CLI) | payer OTHER ==
--- NOTE | 2023-01-17 15:18 | CT ---
EXAMINATION TYPE: CT ChestAbdPelvis w con DATE OF EXAM: 01/17/2023 COMPARISON: 09/02/2023, 03/05/2022 HISTORY: 57-year-old female C54.9 MALIGNANT NEOPLASM OF CORPUS UTERI, UNSPECIF TECHNIQUE: Contiguous axial scanning of the chest, abdomen, and pelvis performed with IV Contrast, pa tient injected with 100 mL of Isovue 300. Delayed images through the kidneys were obtained. Coronal/s agittal reconstructions performed. CT DLP: 962.6 mGycm Automated exposure control for dose reduction was used. FINDINGS: CHEST: Heart normal size without pericardial effusion. Aorta normal caliber with conventional branching anatomy. No thoracic lymphadenopathy by CT size criteria. Mild emphysematous change. No consolidation or pleural effusion. ABDOMEN: Small hiatal hernia. No focal liver lesion. Cholecystectomy clips. No biliary ductal dilatation. Portal venous system is p atent. Adrenal glands, spleen, pancreas within normal limits. 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 A few underlyin g renal cysts measuring up to 1.9 cm are unchanged. Adequate uptake in the excretion of contrast from the kidneys. Suspect circumaortic left renal vein. Mild prostatic calcifications abdominal aorta and common iliac arteries. No dilated small bowel, free fluid, or free air. No mesenteric or retroperitoneal lymphadenopathy. Oral contrast progressed to the rectum. No pericolonic inflammatory change. Normal appendix. PELVIS: Bladder partially distended. Uterus and ovaries surgically absent. No abnormal fluid collection in th e pelvis or pelvic lymphadenopathy. BONES: Facet arthropathy lower lumbar spine. Prominent anterior and plate spondylosis with some partial brid ging change lower thoracic spine. No osseous destructive process. IMPRESSION: 1. STABLE EXAM WITH PRIOR HYSTERECTOMY AND BILATERAL SALPINGO-OOPHORECTOMIES. NO EVIDENCE FOR RECURRE NT OR METASTATIC DISEASE. 2. 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
== END | disposition home or self-care (01) ==
LOC: RADCTMAIN 09:53
PROVIDERS: ATTEND Internal Medicine
DX: C54.1 Malignant neoplasm of endometrium (principal); Z71.3 Dietary counseling and surveillance; Z90.710 Acquired absence of both cervix and uterus; Z90.722 Acquired absence of ovaries, bilateral
CPT/HCPCS: 71260; 74177; Q9967

== ENCOUNTER → 2024-04-05 | Outpatient (CLI) | payer OTHER ==
--- NOTE | 2024-04-05 20:02 | CT ---
EXAMINATION TYPE: CT ChestAbdPelvis w con DATE OF EXAM: 04/05/2024 COMPARISON: 01/17/2023 HISTORY: uterine Ca. CT DLP: 1863 mGycm Automated exposure control for dose reduction was used. CONTRAST: CT scan of the chest, abdomen and pelvis is performed without Oral Contrast and with IV Contrast, pat ient injected with 100ml mL of Isovue 300. FINDINGS: CT chest: There are mild emphysematous changes with an upper lobe predominance. There is no suspicious lung mass or nodule. There is no abnormal airspace/consolidative density or abnormal interstitial density. There is no pleural effusion, pleural thickening or pneumothorax. The great vessels and chest are normal there is no mediastinal, hilar or axillary adenopathy. No focal osseous lesions are seen. CT abdomen and pelvis: There is surgical absence of the gallbladder. There is no biliary ductal dilatation. There is no focal mass or organomegaly involving the liver, pancreas, spleen or adrenal glands.. There is no solid renal mass or hydronephrosis. There is crossed fused ectopia of the right kidney wi th the left kidney. There is no retroperitoneal adenopathy or hemorrhage in the caliber of the abdominal aorta is normal . The bowel loops are normal in caliber and there is no dilatation or obstruction. No inflammatory alaniz ges identified in the bowel wall and mesentery. There is no free intracranial air or fluid. There is no pelvic mass or adenopathy. There is no free fluid within the pelvis. There is surgical ab sence of the uterus. No focal osseous lesions are seen. Soft tissue the abdomen and pelvis are normal. IMPRESSION: Stable CT of the chest, abdomen and pelvis with no interval change compared to the prior study of 01/17. There is no evidence of recurrent or metastatic disease.
== END | disposition home or self-care (01) ==
LOC: RADCTMAIN 15:04
PROVIDERS: ATTEND Internal Medicine
DX: C54.9 Malignant neoplasm of corpus uteri, unspecified (principal); Z71.3 Dietary counseling and surveillance
CPT/HCPCS: 71260; 74177; Q9967